=== PATIENT | male | born 1950 | race Caucasian/White ===

== ENCOUNTER 2021-09-08 00:42 | Day surgery (SDC) | payer MEDICARE, OTHER, SELFPAY ==
[2021-07-27 13:54] VITALS: BMI 27.2
--- NOTE | 2021-08-25 13:35 | PC.NURSE ---
Pt denies any changes in medications or medical history since last PAT call. new date and time reviewed with pt. pt denies further questions.
--- NOTE | 2021-09-07 18:27 | PM.HPGS ---
History of Present Illness History of Present Illness Consent: Risks, benefits, and alternatives have been discussed and questions answered. Patient agrees to proceed with procedure. Chief complaint: neoplasm screening Narrative: Kofi Bergman is a 70 year old male For for colon cancer screening. He has a relative, an uncle, who had colon cancer. His last colonoscopy was 9 years ago Review of Systems Review of Systems: All systems reviewed & are unremarkable except as noted in HPI and below PMFSH Social History Social History Smoking status: Never smoker Substance use: never Living arrangements: with family Spiritual care concerns: No Meds Home Medications and Allergies Home Medications Medication Instructions Recorded Confirmed Type sodium sul 1.479 gram-potas ch See Rx Instructions PO PER PKG DIR 07/22/21 07/27/21 Rx 0.188 gram-magnes sul 0.225 gram #24 tabs tablet (Sutab) empagliflozin 25 mg tablet 25 mg PO DAILY 07/27/21 07/27/21 History (Jardiance) finasteride 5 mg tablet 5 mg PO DAILY 07/27/21 07/27/21 History glipizide 10 mg tablet, extended 10 mg PO DAILY 07/27/21 07/27/21 History release 24 hr glipizide 5 mg tablet, extended 5 mg PO DAILY 07/27/21 07/27/21 History release 24 hr levothyroxine 100 mcg tablet 100 mcg PO DAILY 07/27/21 07/27/21 History (Synthroid) loratadine 10 mg tablet 10 mg PO DAILY 07/27/21 07/27/21 History mometasone 50 mcg/actuation nasal 1 spray intranasal DAILY 07/27/21 07/27/21 History spray montelukast 10 mg tablet 10 mg PO DAILY 07/27/21 07/27/21 History simvastatin 40 mg tablet 40 mg PO DAILY 07/27/21 07/27/21 History sitagliptin 50 mg-metformin 1,000 1 tablet PO BID 07/27/21 07/27/21 History mg tablet (Janumet) tadalafil 5 mg tablet (Cialis) 5 mg PO DAILY 07/27/21 07/27/21 History tamsulosin 0.4 mg capsule 0.4 mg PO DAILY 07/27/21 07/27/21 History Allergies Allergy/AdvReac Type Severity Reaction Status Date / Time No Known Allergies Allergy Verified 09/08/21 06:23 Exam Resp: Auscultation: clear to auscultation bilaterally Cardio: Rate: regular rate Rhythm: regular rhythm GI: GI Palp: Yes Soft to palpation and No Tenderness to palpation present (GI) Assessment and Plan Assessment and plan (1) Colon cancer screening: Code(s): Z12.11 - Encounter for screening for malignant neoplasm of colon Status: Acute Assessment and Plan: Colonoscopy with possible biopsy or polypectomy or cautery or injection of substances.
[2021-09-08 06:25] VITALS: BP 130/77; PULSE 88; RESP 20; TEMP 36.2; O2SAT 99; BMI 25.3
[2021-09-08] MEDS: LACTATED RINGERS 1,000 ML 150 ML IV CONT (06:32)
--- NOTE | 2021-09-08 07:20 | P.PNAN_ITS ---
Anes - Initial Pre Proc Eval Procedure: Operation Date: 09/08/21 07:30 Proposed Procedures p Screening Colonoscopy - Brian Coker MD Date/Time: 09/08/21 07:20 Surgeon: Brian Coker MD Pre Op Diagnosis: neoplasm screening Patient Data Age: 70 Gender: M Height: 8.29 m Weight: 73.4 kg Last Vital Signs Temp 97.1 F L 09/08/21 06:25 Pulse 88 09/08/21 06:25 Resp 20 09/08/21 06:25 BP 130/77 09/08/21 06:25 Pulse Ox 99 09/08/21 06:25 O2 Del Method Room Air 09/08/21 06:25 Allergies Allergy/AdvReac Type Severity Reaction Status Date / Time No Known Allergies Allergy Verified 09/08/21 06:23 Home Medications Medication Instructions Recorded Confirmed Type sodium sul 1.479 gram-potas ch See Rx Instructions PO PER PKG DIR 07/22/21 07/27/21 Rx 0.188 gram-magnes sul 0.225 gram #24 tabs tablet (Sutab) empagliflozin 25 mg tablet 25 mg PO DAILY 07/27/21 07/27/21 History (Jardiance) finasteride 5 mg tablet 5 mg PO DAILY 07/27/21 07/27/21 History glipizide 10 mg tablet, extended 10 mg PO DAILY 07/27/21 07/27/21 History release 24 hr glipizide 5 mg tablet, extended 5 mg PO DAILY 07/27/21 07/27/21 History release 24 hr levothyroxine 100 mcg tablet 100 mcg PO DAILY 07/27/21 07/27/21 History (Synthroid) loratadine 10 mg tablet 10 mg PO DAILY 07/27/21 07/27/21 History mometasone 50 mcg/actuation nasal 1 spray intranasal DAILY 07/27/21 07/27/21 His tory spray montelukast 10 mg tablet 10 mg PO DAILY 07/27/21 07/27/21 History simvastatin 40 mg tablet 40 mg PO DAILY 07/27/21 07/27/21 History sitagliptin 50 mg-metformin 1,000 1 tablet PO BID 07/27/21 07/27/21 History mg tablet (Janumet) tadalafil 5 mg tablet (Cialis) 5 mg PO DAILY 07/27/21 07/27/21 History tamsulosin 0.4 mg capsule 0.4 mg PO DAILY 07/27/21 07/27/21 History Patient hx anesthesia problems: none Family hx anesthesia problems: none Results Review: All pre-operative results and documents have been reviewed as part of the pre- operative evaluation. [facility] Social History Social History Smoking status: Never smoker Substance use: never Living arrangements: with family Spiritual care concerns: No Anes - Eval Final PreProcedure Day of Procedure 09/08/21 07:20 Patient weight: normal Heart: regular rate and rhythm Lungs: clear to auscultation Airway: Mallampati scale class II Neurological: alert and oriented Last oral intake: >/= 8 hours ASA classification: III Emergent: no Anesthetic plan: proceed Anesthesia type and monitoring: general GIVS and standard monitoring Results Review: All pre-operative results and documents have been reviewed as part of the pre- operative evaluation. Informed Consent: The patient's anesthetic plan and its attendant risks and benefits were discussed with the patient/family/POA. Questions were solicited and answers provided to the satisfaction of the patient/family/POA.
[2021-09-08 07:43] VITALS: BP 92/64; PULSE 78; RESP 16; O2SAT 95
[2021-09-08 07:53] VITALS: BP 101/70; PULSE 72; RESP 18; O2SAT 96
[2021-09-08 08:03] VITALS: BP 112/72; PULSE 70; RESP 18; O2SAT 96
[2021-09-08 08:54] LABS: Glucose Point of Care 140 mg/dl (65-105)
== END 2021-09-08 08:16 | disposition home or self-care (01) ==
PROVIDERS: Visit Provider Internal Medicine Gastroenterology
PROC: 0DJD8ZZ Inspection of Lower Intestinal Tract, Via Natural or Artificial Opening Endoscopic (ICD-10-PCS; CPT 45378; principal; 2021-09-08 07:30)
DX: Z12.11 Encounter for screening for malignant neoplasm of colon (principal); K64.8 Other hemorrhoids; K57.30 Diverticulosis of large intestine without perforation or abscess without bleeding; Z80.0 Family history of malignant neoplasm of digestive organs; Z79.84 Long term (current) use of oral hypoglycemic drugs
CPT/HCPCS: G0105; 82948; J2704; J7120

== ENCOUNTER 2024-10-29 09:40 | Outpatient (CLI) | payer MEDICARE, OTHER, SELFPAY ==
--- OUTSIDE RECORDS SUMMARY | 2024-10-29 10:52 | XMS_ITS | Clinical Summary ---
Author Organization [facility] [place] [address] [facility] [address] [place] [address] Care Team Providers Care Electrical Maintenance Technician Name Role Phone Karsten Lombardo Primary Care Provider [phone] Allergies No known active allergies Medications SYNTHROID 100 mcg tablet 8 Active JARDIANCE 25 mg tabletIndications: type 2 diabetes mellitus 8 Active finasteride (PROSCAR) 5 mg tablet 8 Active JANUMET 50-1,000 mg per tablet 8 Active montelukast (SINGULAIR) 10 mg tablet 8 Active tamsulosin (FLOMAX) 0.4 mg extended release capsule 8 Active simvastatin (ZOCOR) 40 mg tablet 8 Active ALLERGY RELIEF, LORATADINE, 10 mg tablet 8 Active PRECISION XTRA TEST strip 8 Active NEETA-D 12 HOUR 60-120 mg per 12 hr tablet 8 Active FREESTYLE 28 gauge lancets 8 Active glipiZIDE XL (GLUCOTROL XL) 10 mg 24 hr tabletIndications: type 2 diabetes mellitus Take 10 mg by mouth daily. Active fluticasone (FLOVENT DISKUS) 50 mcg/actuation diskus inhaler Inhale 1 puff 2 (two) times a day. Rinse mouth with water after use to reduce aftertaste and incidence of candidiasis. Do not swallow. Active multivit,calc,mins /folic acid (ONE-A-DAY PROACTIVE 65 PLUS ORAL) Take by mouth. Activ e C,E,zinc,copper [id number] 250-5-1 mg capsule Take by mouth. Active rosuvastatin (CRESTOR) 20 mg tablet 2 Active tadalafiL (CIALIS) 5 mg tablet Take 5 mg by mouth daily 2 Active glipiZIDE XL (GLUCOTROL XL) 5 mg 24 hr tablet 2 Active meloxicam (MOBIC) 15 mg tablet Take 15 mg by mouth daily Active mometasone (NASONEX) 50 mcg/actuation nasal spray Administer 2 sprays into each nostril daily Active olopatadine (PATADAY) 0.2 % ophthalmic solutionIndication s:Allergic Conjunctivitis 1 drop daily Ac tive Active Problems Problem Noted Date Diagnosed Date Nasal obstruction 12/29/2021 Assessment & Plan (12/29/2021 11:28 AM STATISTICIAN): He has medication that can be causing the symptoms. He also has some nasal airway obstruction problems. He is going to discontinue his Flomax and has already okay that with his urologist. That may be enough to help with the symptoms. If after a month he still is having problems I have asked to consider surgery. He will follow-up if that the case. Deviated nasal septum 12/29/2021 Assessment & Plan (12/29/2021 11:27 AM STATISTICIAN): His deviated nasal septum could be contributing to this problem. He also has somewhat enlarged inferior turbinates. I discussed surgery to correct these which I think would help with his nasal airway. I suggested that he try discontinuing the Flomax for a while before doing anything. If he continues to have problems after that I have asked him to return to discuss surgery. Other chest pain 09/19/2017 Surgical History Surgery Date Site/Laterality Comments COLONOSCOPY BLEPHAROPTOSIS REPAIR KIDNEY STONE SURGERY Medical History Medical History Date Comments Hypertension Heart murmur Thyroid disease Obesity Diabetes mellitus (HCC) Sleep apnea Arthritis Enlarged prostate Kidney stones Ear problems Allergic rhinitis HL (hearing loss) Tinnitus Family History Medical History Relation Name Comments Cancer Father Cancer Father's Brother COPD Father's Sister Heart disease Father's Sister Lung disease Maternal Grandfather Cancer Maternal Grandmother COPD Mother Cancer Mother's Brother Diabetes Paternal Grandfather Heart disease Paternal Grandfather Heart disease Paternal Grandmother Relation Name Status Comments Father Father's Brother Father's Sister Maternal Grandfather Maternal Grandmother Mother Mother's Brother Paternal Grandfather Paternal Grandmother Social History Tobacco Use Types Packs/Day Years Used Date Smoking Tobacco: Never Smokeless Tobacco: Never Alcohol Use Standard Drinks/Week Comments No 0 (1 standard drink = 0.6 oz pur e alcohol) Personal Safety Answer Date Recorded Getting School Help Needed Not on file 04/17 Sex and Gender Information Value Date Recorded Sex Assigned at Not on file Legal Sex Male 6:55 AM STATISTICIAN Gender Identity Not on file Sexual Orientation Choose not to disclose 2021 12:21 PM CDT Obstetrics History Last Filed Vital Signs Vital Sign Reading Time Taken Comments Blood Pressure 110/60 10/03/2017 1:43 PM CDT Pulse 86 10/03/2017 1:43 PM CDT Temperature - - Respiratory Rate 18 12/29/2021 10:53 AM STATISTICIAN Oxygen Saturation 96% 10/03/2017 1:43 PM CDT Inhaled Oxygen Concentration - - Weight 75.3 kg (166 lb) 12/29/2021 10:53 AM STATISTICIAN Height 170.2 cm (5' 7) 12/29/2021 10:53 AM STATISTICIAN Body Mass Index 26 12/29/2021 10:53 AM STATISTICIAN Plan of Treatment Health Maintenance Due Date Last Done Comments Colon Cancer Screening-Colonoscopy 1950 Depression Screening 1950 Fall Risk Assessment 1950 Hepatitis C Screening 1950 DTaP/Tdap/Td Vaccine (1 - Tdap) 10/24/1962 Hepatitis B Screening 10/24/1969 Pneumococcal vaccine 65+ (1 of 1 - PCV) 10/24/2001 Zoster Vaccine (1 of 2) 10/24/2001 Abdominal Aortic Aneurysm (A AA) Screen 10/24/2016 Well Visit 65+ 10/24/2016 Covid-19 Vaccine (5 - 2023-2 5 season) 2023 12/23/2021, 06/23/2021, 05/08/2020, Additional history exists Influenza Vaccine (#1) 2024 12/06/2021, 2019 Insurance MEDICARE FOR LIFE MEDICARE FOR LIFE Care Teams Electrical Maintenance Technician Relationship Specialty Start Date End Date Karsten Lombardo DO PCP - General Internal Medicine 12/23/21
--- OUTSIDE RECORDS SUMMARY | 2024-10-29 10:52 | XMS_ITS | Clinical Summary ---
Author Organization [facility] Address [address] [place] [id number] Care Team Providers Care Tax Intern Name Role Phone Unavailable Primary Care Provider Unavailabl e Social History Tobacco Use Types Packs/Day Years Used Date Smoking Tobacco: Never Assessed Sex and Gender Information Value Date Recorded Sex Assigned at Not on file Legal Sex Male 2:41 PM CDT Gender Identity Not on file Sexual Orientation Not on file Plan of Treatment Health Maintenance Due Date Last Done Comments Colorectal Cancer Screening Colonoscopy (10 Years) 1950 Hepatitis C 10/24/1969 DTaP, Tdap and Td Vaccines ( 1 - Tdap) 10/24/1970 Pneumococcal Vaccine: 50+ Ye ars (1 of 1 - PCV) 10/24/2001 Zoster Vaccines (1 of 2) 10/24/2001 COVID-19 Vaccine ( - 2023-2 5 season) 2024 RSV Immunization or 60+ Years (1 - 1-dose 75+ series) 10/24/2026 Meningococcal B Vaccine Aged Out No l onger eligible based on patient's age to complete this topic Meningococcal Vaccine Aged Out No james coretta eligible based on patient's age to complete this topic RSV Immunizations Under 20 Months Aged Out No longer eligible based on patient's age to complete this topic
[2024-10-29 13:08] LABS: Hematocrit 38.5 % (42.0-52.0); Hemoglobin 12.5 g/dL (14.0-18.0); Immature Granulocyte Percent A 0.1 % (0-0.5); Lymphocytes Absolute Auto 1.46 K/mm3 (0.9-3.2); Mean Corpuscular HGB Conc 32.5 g/dl (32-36); Mean Corpuscular Hemoglobin 30.8 pg (26-34); Mean Corpuscular Volume 94.8 fl (80-100); Nucleated Red Blood Cells Absolute Auto 0.000 K/mm3 (0.0-0.012); Nucleated Red Blood Cells Perc 0.0 % (0.0-0.2); Platelet Count Result 223 k/mm3 (150-375); Red Blood Count 4.06 M/mm3 (4.6-6.20); White Blood Count 7.3 K/mm3 (4.5-10.0)
[2024-10-29 13:15] LABS: Alanine Aminotransferase 37 U/L (6-50); Albumin Level 4.2 g/dL (3.5-5.1); Alkaline Phosphatase 64 U/L (38-126); Anion Gap 8 mmol/L (4-12); Aspartate Amino Transferase 55 U/L (17-59); Bilirubin,Total 0.8 mg/dL (0.2-1.3); Blood Urea Nitrogen 16 mg/dL (9-20); Calcium 9.7 mg/dL (8.4-10.2); Carbon Dioxide 26 mmol/L (22-30); Chloride 105 mmol/L (98-107); Estimated Glomerular Filt Rate > 60; Glucose 105 mg/dL (65-110); Potassium 4.0 mmol/L (3.4-5.0); Sodium 139 mmol/L (137-145); Total Protein 7.2 g/dL (6.3-8.2)
[2024-10-29 13:21] LABS: Add Urine Microscopic? NO; Appearance Urine Clear (Clear); Glucose Urine UA 3+ mg/dL (Negative); Leukocyte Esterase Ur Negative LEU/UL (Negative); Nitrate Urine Negative (Negative); Specific Grav Ur 1.035 (1.001-1.035)
[2024-10-29 13:39] LABS: Free T3 2.75 pg/mL (2.45-5.93); Free T4 Free Thyroxine 0.94 ng/dL (0.78-2.19)
[2024-10-29 13:41] LABS: MALB Creatinine Ratio 12.7 mg/g (0-30)
[2024-10-29 13:51] LABS: Prostate Specific Antigen 0.1 ng/mL (< OR = 4.0); Thyroid Stimulating Hormone 3.410 uIU/mL (0.465-4.680)
[2024-10-29 14:07] LABS: Ferritin 33.50 ng/mL (11.1-264)
[2024-10-29 16:23] LABS: Hemoglobin A1C 6.8 % (<5.7)
[2024-10-30 15:09] LABS: Deamidated Gliadin Abs, IgA 41 units (0-19); Deamidated Gliadin Abs, IgG 34 units (0-19); Immunoglobulin A, Qn 389 mg/dL (61-437)
== END 2024-10-29 09:41 | disposition home or self-care (01) ==
PROVIDERS: PCP Internal Medicine; Visit Provider Internal Medicine
DX: D64.9 Anemia, unspecified (principal); E11.9 Type 2 diabetes mellitus without complications; Z12.5 Encounter for screening for malignant neoplasm of prostate; R63.4 Abnormal weight loss; Z68.22 Body mass index [BMI] 22.0-22.9, adult
CPT/HCPCS: 36415; 80053; 81003; 82043; 82728; 82784; 83036; 84153; 84439; 84443; 84481; 85025; 85652; 86231; 86258; G0103

== ENCOUNTER 2024-11-27 09:22 | Outpatient (RCR) | payer MEDICARE, OTHER, SELFPAY ==
[2024-11-27 09:30] VITALS: BMI 22.8
[2024-11-27 09:32] VITALS: BMI 22.8
== END 2025-02-17 12:47 | disposition home or self-care (01) ==
LOC: ANHDMC 09:22
PROVIDERS: PCP Internal Medicine; Visit Provider Internal Medicine
DX: E11.9 Type 2 diabetes mellitus without complications (principal); K90.0 Celiac disease; R63.4 Abnormal weight loss; Z71.3 Dietary counseling and surveillance
CPT/HCPCS: 97802

== ENCOUNTER 2024-11-29 07:27 | Outpatient (CLI) | payer MEDICARE, OTHER, SELFPAY ==
--- NOTE | ~2024-11-29 | CT_ITS ---
EXAMINATION: CT chest abdomen pelvis w con DATE: 11/29/2024 07:46 INDICATION: Anemia. TECHNIQUE: Computed tomography (CT) of the chest, abdomen, and pelvis was performed with 100 mL Omnipaque 350 intravenous contrast. Automated exposure control and iterative reconstruction technique were employed. The dose-length product was 417.48 mGy-cm. COMPARISON: CT abdomen and pelvis 07/20/2007 FINDINGS: CHEST CT: The lungs demonstrate minimal atelectasis. No pleural effusion. The heart size is normal. There are coronary artery calcifications. No pericardial effusion. There is mild thoracic spondylosis. ABDOMEN/PELVIS CT: The liver, gallbladder, spleen, pancreas, adrenal glands, and kidneys are normal. There is diverticulosis of the colon without evidence of diverticulitis. There are no dilated loops of bowel. The appendix is normal. There are no pathologically enlarged lymph nodes. There is no free intraperitoneal fluid. There is severe lumbar spondylosis. IMPRESSION: 1. No specific etiology for anemia. Reviewed, dictated and finalized at location E.
[2024-11-29 07:42] LABS: Estimated Glomerular Filt Rate > 60
== END 2024-11-29 07:28 | disposition home or self-care (01) ==
LOC: ANHIMG 07:28
PROVIDERS: PCP Internal Medicine; Visit Provider Internal Medicine
DX: R63.4 Abnormal weight loss (principal); K90.0 Celiac disease; D64.9 Anemia, unspecified; R70.0 Elevated erythrocyte sedimentation rate
CPT/HCPCS: 71260; 74177; Q9967

== ENCOUNTER 2024-12-16 08:17 | Outpatient (CLI) | payer MEDICARE, OTHER, SELFPAY ==
--- OUTSIDE RECORDS SUMMARY | 2024-12-16 08:30 | XMS_ITS | Clinical Summary ---
Author Organization [facility] [place] [address] [facility] [address] [place] [address] Care Team Providers Care Energy Broker Name Role Phone Karsten Lombardo Primary Care Provider [phone] [phone] Allergies No known active allergies Medications SYNTHROID [...] ORAL) Take by mouth. Activ e C,E,zinc,copper [id number] 250-5-1 mg capsule Take by mouth. Active [...] 12/29/2021 Assessment & Plan (12/29/2021 11:28 AM SYSTEM ENGINEER): He has medication that can be causing [...] 12/29/2021 Assessment & Plan (12/29/2021 11:27 AM SYSTEM ENGINEER): His deviated nasal septum could be contributing [...] Heart murmur Thyroid disease Obesity Diabetes mellitus Sleep apnea Arthritis Enlarged prostate Kidney stones [...] on file Legal Sex Male 6:55 AM SYSTEM ENGINEER Gender Identity Not on file Sexual Orientation Choose not to disclose 2021 12:21 PM CDT Obstetrics History Last Filed Vital Signs Vital Sign Reading Time Taken Comments Blood Pressure 110/60 10/03/2017 1:43 PM CDT Pulse 86 10/03/2017 1:43 PM CDT Temperature - - Respiratory Rate 18 12/29/2021 10:53 AM SYSTEM ENGINEER Oxygen Saturation 96% 10/03/2017 1:43 PM CDT Inhaled Oxygen Concentration - - Weight 75.3 kg (166 lb) 12/29/2021 10:53 AM SYSTEM ENGINEER Height 170.2 cm (5' 7) 12/29/2021 10:53 AM SYSTEM ENGINEER Body Mass Index 26 12/29/2021 10:53 AM SYSTEM ENGINEER Plan of Treatment Health Maintenance Due Date [...] Visit 65+ 10/24/2016 Covid-19 Vaccine (5 - 2024-2 6 season) 2024 12/23/2021, 06/23/2021, 05/08/2020, Additional history exists Influenza Vaccine (#1) 2024 12/06/2021, 10/14/ 2020 Insurance MEDICARE FOR LIFE MEDICARE FOR LIFE Care Teams Energy Broker Relationship Specialty Start Date End Date Karsten Lombardo DO PCP - General Internal Medicine 12/23/21
--- OUTSIDE RECORDS SUMMARY | 2024-12-16 08:30 | XMS_ITS | Clinical Summary ---
Author Organization [facility] Address [address] [place] [id number] Care Team Providers Care Neurology Stroke Physician Name Role Phone Unavailable Primary Care Provider [...] of 2) 10/24/2001 COVID-19 Vaccine ( - 2024-2 6 season) 2024 Influenza Adult (#1) 2024 RSV Immunization or 60+ Years (1 - 1-dose 75+ series) 10/24/2026 Hepatitis A Vaccines Aged Out No long er eligible based on patient's age to complete this topic Meningococcal B Vaccine Aged Out No l onger eligible based on patient's age to complete this topic Meningococcal Vaccine Aged Out No james coretta eligible based on patient's age to complete this topic RSV Immunizations Under 20 Months Aged Out No longer eligible based on patient's age to complete this topic
[2024-12-17 16:08] LABS: Deamidated Gliadin Abs, IgA 35 units (0-19); Deamidated Gliadin Abs, IgG 31 units (0-19); Immunoglobulin A, Qn 367 mg/dL (61-437)
== END 2024-12-16 08:18 | disposition home or self-care (01) ==
PROVIDERS: PCP Internal Medicine; Visit Provider Internal Medicine
DX: R63.4 Abnormal weight loss (principal); D64.9 Anemia, unspecified; K90.0 Celiac disease; R70.0 Elevated erythrocyte sedimentation rate
CPT/HCPCS: 82784; 86231; 86258